=== PATIENT | female | born 1950 | race Caucasian/White ===

== ENCOUNTER 2023-12-17 10:55 | Day surgery (SDC) | payer MEDICARE ==
[~2023-12-17] VITALS: Ht 154.9 cm; Wt 97.3 kg
[2023-12-17] VITALS (11 sets, daily range): BP systolic 119–141; BP diastolic 62–80; PULSE 68–103; TEMP 97.3–98
[~2023-12-17 10:55] MED LIST changes: -HCTZ 25MG TAB25 MG PO; +LR 1,000 ML IV ONE; -LR 1,000 ML IV SCH; +Midazolam 2 MG/2 ML VIAL ONE; -NORCO 325 MG-51 TAB PO; -NORVASC 5MG5 MG/TAB PO; +NS 10 ML IV ONE; +Ondansetron 4 MG/2 ML VIAL ONE; +dexAMETHasone 10 MG/ML VIAL ONE
[2023-12-17] MEDS ORDERED: fentaNYL 50 MCG/ML 5 ML VIAL ONE (11:29)
[2023-12-17] MEDS ORDERED: Ondansetron 4 MG/2 ML VIAL IV PRN ×2 (11:45→15:30)
[2023-12-17] MEDS ORDERED: droPERidol 2.5 MG/ML 2 ML VIAL IV PRN (11:45)
[2023-12-17] MEDS ORDERED: hydrALAZINE 20 MG/ML 1 ML VIAL IV PRN (11:45)
[2023-12-17] MEDS ORDERED: fentaNYL 50 MCG/ML 2 ML VIAL IV PRN (11:45)
[2023-12-17] MEDS ORDERED: HYDROmorphone 2 MG/1 ML VIAL IV PRN (11:45)
[2023-12-17] MEDS ORDERED: Promethazine 25 MG/ML 1 ML VIAL IV PRN (11:45)
[2023-12-17] MEDS ORDERED: NORVASC 5MG5 MG/TAB PO (11:46)
[2023-12-17] MEDS ORDERED: HCTZ 25MG TAB25 MG PO (11:47)
--- NOTE | 2023-12-17 15:05 | NUR ---
Pt arrived to surgical floor by bed from surgery. Admission assessment completed. Pt is alert and oriented x4. VSS. Pt is on 2L O2 NC. Oriented pt to room, call light, and bathroom. Pt has complaints of pain rating 6/10. Lyman administered as ordered. INT to Lt hand patent with no swelling, drainage, or redness. Incision on Rt chest is CDI. Pt has no request at this time. Daughter is at bedside. Call light within reach.
[2023-12-17] MEDS ORDERED: Morphine 4 MG/ML VIAL IV PRN (15:30)
[2023-12-18] VITALS (8 sets, daily range): BP systolic 108–119; BP diastolic 70–78; PULSE 67–75; TEMP 97.5–97.9
--- NOTE | 2023-12-18 07:10 | NUR ---
Pt doing okay this morning. Daughter is at bedside. Pt reports minimal to no pain at this time. I did assist her to the restroom, voided without difficulty, required standby assist. GREG drain to compression
[2023-12-18] MEDS ORDERED: amLODIPine 5 MG TAB PO SCH (09:00)
[2023-12-18] MEDS ORDERED: hydroCHLOROthiazide 25 MG TAB PO SCH (09:00)
--- NOTE | 2023-12-18 10:39 | NUR ---
Initial visit; Patient thanked General Assembler for looking in on her, offering cheer and God's Blessings. She also thanked General Assembler for keeping her in her prayers. Patient's daughter was also present who smiled with her mom and General Assembler.
--- NOTE | 2023-12-18 11:00 | NUR ---
Pt has continued to do well. Discussed drain care with pt and her daughter. Stated that she would have home health, but that they would need to empty the drain some themselves. Pt reports pain is tolerable. She did tolerate her breafkast with no issues. Drsg was removed and airstrip applied.
[2023-12-18] MEDS ORDERED: NORCO 325 MG-51 TAB PO (12:29)
--- NOTE | 2023-12-18 13:26 | NUR ---
Reviewed discharge instructions with pt and her daughter. Pt denied wanting any lunch, stated she was not hungry. Daughter reported that she felt comfortable with the drain. INT removed from left hand. Informed her that we would help her get dressed. Daughter stated she could do that. Informed her to ring call light when she was ready to be escorted out in a wheelchair
--- NOTE | 2023-12-18 15:19 | NUR ---
[facility] met with patient and her daughter, Lora (ph#[phone]) to discuss discharge planning. Patient lives with Lora in [place] and sees Dr. Daniels for primary care. Patient obtains medciations from [facility] in with no difficulties and does not normally use any DME. Patient is normally independent with ADLS and plans to return home at time of discharge. Patient does not have DPOA-HC and is not interested in completing one at this time. Patient is interested in Home Health for nursing to help manage her drain that was placed. FERMIN presented [employer] list of agencies and patient selected [facility]. [facility] contacted [facility] and faxed referral. [facility] called to follow up and accept. [facility] faxed discharge orders for [facility]. Discharge Plan: Home with [facility]
== END 2023-12-18 13:45 | disposition home health service (06) ==
LOC: SDCO 10:55 → SURG 15:05 → SDCO 12-18 13:45
DX: C50.211 Malignant neoplasm of upper-inner quadrant of right female breast (principal); C79.2 Secondary malignant neoplasm of skin; C79.81 Secondary malignant neoplasm of breast; Z17.0 Estrogen receptor positive status [ER+]
CPT/HCPCS: OP; A4648; J0665; J0690; J1100; J2250; J2405; J2704; J2795; J3010; J7120

== ENCOUNTER → 2023-12-17 | Outpatient (CLI) | payer MEDICARE ==
[~2023-12-17] MED LIST: DECADRON6 MG PO; DESENEX TP; Famotidine 20 MG TAB PO SCH; HCTZ 25MG TAB25 MG PO; LR 1,000 ML IV SCH; MONODOX100 PO; NORCO 325 MG-51 TAB PO; NORVASC 5MG5 MG/TAB PO; PROAIR HFA0.09 MG/AC IH; TYLENOL 500MG500 MG PO; ZESTRIL 10MG10 MG PO
== END ==
LOC: COL.RAD 08:38
DX: C50.211 Malignant neoplasm of upper-inner quadrant of right female breast (principal); C79.89 Secondary malignant neoplasm of other specified sites; Z17.0 Estrogen receptor positive status [ER+]
CPT/HCPCS: A9520-JZ

== ENCOUNTER 2024-09-20 11:08 | Emergency (ER) | payer MEDICARE ==
[~2024-09-20] VITALS: Ht 154.9 cm; Wt 97.3 kg
[~2024-09-20 11:08] MED LIST changes: -Famotidine 20 MG TAB PO SCH; +HCTZ 25MG TAB25 MG PO; -LR 1,000 ML IV ONE; -Midazolam 2 MG/2 ML VIAL ONE; +NORCO 325 MG-51 TAB PO; +NORVASC 5MG5 MG/TAB PO; -NS 10 ML IV ONE; -Ondansetron 4 MG/2 ML VIAL ONE; -dexAMETHasone 10 MG/ML VIAL ONE
[2024-09-20 11:21] VITALS: TEMP 98.7
[2024-09-20 12:42] LABS: BASO # 0.1 K/mm3 (0.0-0.2); BASO % 0.3 % (0.0-2.0); EOS # 0.1 K/mm3 (0.0-0.7); EOS % 0.4 % (0.0-4.0); GRAN # 11.6 K/mm3 (1.4-6.5); GRAN % 80.1 % (42.2-75.2); HEMATOCRIT 42.9 % (37.0-47.0); LYMPH # 1.5 K/mm3 (1.2-3.4); LYMPH % 10.2 % (20.0-51.0); MEAN CELL VOLUME 92 fl (80.0-100.0); MEAN CORPUSCULAR HEMOGLOBIN 30 pg (27-31); MEAN CORPUSCULAR HGB CONC 33 g/dl (33.0-37.0); MEAN PLATELET VOLUME 9.9 fl (7.4-10.4); MONO # 1.3 K/mm3 (0.1-0.6); MONO % 8.7 % (1.7-9.3); PLATELET COUNT 295 K/mm3 (130-400); RED BLOOD COUNT 4.67 M/mm3 (4.10-5.30); REDCELL DISTRIBUTION WIDTH-CV 12.7 % (11.5-14.5)
[2024-09-20 12:46] LABS: INR 1.1 (0.8-3.0); PROTHROMBIN TIME 12.4 SECONDS (9.7-12.8)
[2024-09-20 12:58] LABS: ALBUMIN 3.6 g/dL (3.4-4.8); BILIRUBIN,TOTAL 0.5 mg/dL (0.2-1.2); CALCIUM 9.6 mg/dL (8.4-10.2); CREATININE, serum 0.86 mg/dL (0.57-1.11); POTASSIUM 3.5 mEq/L (3.5-4.5); TOTAL PROTEIN 7.4 g/dl (6.2-8.1)
[2024-09-20] MEDS ORDERED: Iohexol 300 - 100 ML VIAL IV ONE (13:20)
[2024-09-20] MEDS ORDERED: NS 100 ML IV SCH (13:30)
--- NOTE | 2024-09-20 15:19 | NUR ---
SW called by staff in ED to provide emotional support for patient being provided a "tough diagnosis" before discharging from emergency department. SW met with patient and daughter to inquire if patient or daughter had any questions or concerns at this time, also providing support of any resources offered. Patient and daughter stated they did not need any resources at this time and would call if any questions would arise. Nothing further.
[2024-09-20] MEDS ORDERED: PROMETHAZINE D118 ML PO (16:29)
[2024-09-20 17:18] LABS: COLLECTION METHOD CATHETER
[2024-09-20 17:24] LABS: PH 5.5 (5.0-8.5); URINE APPEARANCE CLEAR (CLEAR/HAZY); URINE BLOOD NEGATIVE (NEGATIVE); URINE COLOR YELLOW (YELLOW); URINE GLUCOSE NEGATIVE (NEGATIVE); URINE KETONE 1+ (NEGATIVE); URINE NITRATE NEGATIVE (NEGATIVE); URINE PROTEIN(semi-quant) 1+ (NEGATIVE); URINE UROBILINOGEN 0.2 E.U/dL (0.2-1.0)
[2024-09-20 17:48] VITALS: BP 181/99; PULSE 70
== END 2024-09-20 17:59 | disposition home or self-care (01) ==
LOC: COL.ER 11:08
PROVIDERS: Physician Assistant
DX: N88.8 Other specified noninflammatory disorders of cervix uteri (principal); R05.3 Chronic cough; Z85.3 Personal history of malignant neoplasm of breast
CPT/HCPCS: Q9967